=== PATIENT | male | born 1970 | race Caucasian/White ===

== ENCOUNTER 2016-11-16 17:52 | Emergency (ER) | payer OTHER ==
[2016-11-16 18:42] LABS: Hematocrit 43 % (42-52); Hemoglobin 14.8 g/dl (14.0-18.0); Mean Corpuscular HGB Conc 34 g/dl (31-36); Mean Corpuscular Hemoglobin 31 pg (27-31); Mean Corpuscular Volume 90 fL (80-94); Mean Platelet Volume 7 um3 (7.4-10.4); Red Blood Count 4.83 10^6/ul (4.0-5.4); Red Cell Distribution Width 13 % (10.5-15); White Blood Count 11.8 10^3/ul (3.5-10.8)
[2016-11-16 18:58] LABS: ALT 12 U/L (7-52); AST 15 U/L (13-39); Albumin 4.7 g/dL (3.2-5.2); Alkaline Phosphatase 74 U/L (34-104); Anion Gap 7 mmol/L (2-11); BUN/Creatinine Ratio 12.9 (8-20); Blood Urea Nitrogen 11 mg/dL (6-24); CO2 Carbon Dioxide 24 mmol/L (22-32); Calcium 9.7 mg/dL (8.6-10.3); Chloride 104 mmol/L (101-111); EGFR African American 125.4 (>60); EGFR Non-African American 97.5 (>60); Globulin 2.8 g/dL (2-4); Glucose 136 mg/dL (70-100); Potassium 3.8 mmol/L (3.5-5.0); Sodium 135 mmol/L (133-145); Total Protein 7.5 g/dL (6.4-8.9)
[2016-11-16 19:15] LABS: Urine Bacteria Absent (Absent); Urine Bilirubin Negative (Negative); Urine Glucose Negative (Negative); Urine Nitrite Negative (Negative)
[2016-11-16 19:23] LABS: Acetaminophen < 15 mcg/mL; Alcohol < 10 mg/dL (<10); Salicylate < 2.50 mg/dL (<30)
[2016-11-16 19:27] LABS: Benzodiazepine Urine Screen None Detected (None Detect)
[2016-11-16 19:33] LABS: TSH (Thyroid Stimulating Horm) 0.74 mcIU/mL (0.34-5.60)
[2016-11-16 19:50] LABS: Creatine Kinase 107 U/L (10-223)
[2016-11-16 19:52] LABS: Troponin I 0.01 ng/mL (<0.04)
[2016-11-16] MEDS ORDERED: Morphine INJ* 4 MG/ML 1 ML SYRINGE IV ONE (20:01)
[2016-11-16] MEDS ORDERED: Acetaminophen TAB* 325 MG PO ONE (22:18)
[2016-11-16] MEDS ORDERED: LORazepam TAB(*) 1 MG PO ONE (23:02)
--- NOTE | 2016-11-16 23:10 | ED ---
Zurdo Almanzar Erika, scribed for Lesliuisi,Isa Barnett MD on 11/16/16 at 1959 . Psychiatric Complaint - HPI Summary HPI Summary: Patient is a 46-year-old male BIB police to the ED as a 941. Patient reports that he has been under a lot of stress recently. He states people close to him have overdosed on heroin, and he recently fought with his girlfriend and was served with a restraining order today so could not live in his house anymore. Patient states he has SI, but states he always has SI. He denies any attempts. Patient reports he always snorts his gabapentin, which he takes for anxiety. He reports the medication has a greater effect that way. He denies Hx cocaine use. Patient does also report mild chest pain, improved from earlier today. Patient denies HI. Hx ADHD - takes methylphenidate. Hx depression, anxiety. Hx HTN - takes amlodipine and hydrochlorothiazide. He denies Hx DM, liver disease, kidney disease, and CAD. He smokes cigars. - History Of Current Complaint Chief Complaint: EDChestPainROMI Time Seen by Provider: 11/16/16 18:28 Accompanied By: Alone Hx Obtained From: Patient Onset/Duration: Gradual Onset, Lasting Weeks, Still Present Timing: Constant Severity Currently: Moderate Character: Depressed Aggravating Factor(s): Recent Stress Alleviating Factor(s): Nothing Related History: Positive For: Prior Psychiatric Issues Has Suicidal: Reports: Thoughts. Denies: Demonstrates Gesture, Has Prior Attempt(s) - Allergies/Home Medications Allergies/Adverse Reactions: Allergies Allergy/AdvReac Type Severity Reaction Status Date / Time No Known Allergies Allergy Verified 04/01/16 09:46 PMH/Surg Hx/FS Hx/Imm Hx Endocrine/Hematology History: Denies: Hx Diabetes Cardiovascular History: Reports: Hx Angina, Hx Hypertension, Other Cardiovascular Problems/Disorders - Leaky heart valve. Denies: Hx Congestive Heart Failure History: Denies: Hx Renal Disease Sensory History: Reports: Hx Contacts or Glasses Opthamlomology History: Reports: Hx Contacts or Glasses Psychiatric History: Reports: Hx Anxiety, Hx Attention Deficit Hyperactivity Disorder, Hx Depression Denies: Hx Eating Disorder, Hx of Violent Episodes Against Others - Immunization History Date of Tetanus Vaccine: unk Infectious Disease History: No Infectious Disease History: Denies: Traveled Outside the [place] in Last 30 Days - Family History Known Family History: Positive: Cardiac Disease - Social History Alcohol Use: Occasionally Alcohol Amount: possible occasional binging Substance Use Type: Reports: Prescribed - snorts gabapentin Hx Tobacco Use: Yes Smoking Status (MU): Current Some Day Smoker Type: Cigars Review of Systems Positive: Chest Pain Positive: Depressed - with SI All Other Systems Reviewed And Are Negative: Yes Physical Exam Triage Information Reviewed: Yes Vital Signs On Initial Exam: Initial Vitals Temp Pulse Resp BP Pulse Ox 99.1 F 120 20 174/125 98 11/16/16 17:56 11/16/16 17:56 11/16/16 17:56 11/16/16 17:56 11/16/16 17:56 Vital Signs Reviewed: Yes Appearance: Positive: Well-Appearing, No Pain Distress, Well-Nourished Skin: Positive: Warm, Skin Color Reflects Adequate Perfusion, Dry Head/Face: Positive: Normal Head/Face Inspection Eyes: Positive: EOMI, JOANNE, Conjunctiva Clear ENT: Positive: Hearing grossly normal Neck: Positive: Supple, Nontender Respiratory/Lung Sounds: Positive: Clear to Auscultation, Breath Sounds Present Cardiovascular: Positive: Pulses are Symmetrical in both Upper and Lower Extremities, Tachycardia - at 120 bpm on triage. Negative: Murmur, Rub Abdomen Description: Positive: Nontender, No Organomegaly, Soft. Negative: Distended, Guarding, Peritoneal Signs Bowel Sounds: Positive: Present Musculoskeletal: Positive: Strength/ROM Intact Neurological: Positive: Sensory/Motor Intact, Alert, Oriented to Person Place, Time, Normal Gait. Negative: Cerebellar Dysfunction Psychiatric: Positive: Affect/Mood Appropriate - Tynan Coma Scale Coma Scale Total: 15 Diagnostics - Vital Signs Vital Signs Temp Pulse Resp BP Pulse Ox 11/16/16 18:48 93 14 98 11/16/16 18:47 88 16 169/109 98 11/16/16 18:10 16 11/16/16 18:05 99.8 F 113 16 194/125 97 11/16/16 17:56 99.1 F 120 20 174/125 98 - Laboratory Lab Results: Lab Results 11/16/16 11/16/16 Range/Units 18:29 18:29 WBC 11.8 H (3.5-10.8) 10^3/ul RBC 4.83 (4.0-5.4) 10^6/ul Hgb 14.8 (14.0-18.0) g/dl Hct 43 (42-52) % MCV 90 (80-94) fL MCH 31 (27-31) pg MCHC 34 (31-36) g/dl RDW 13 (10.5-15) % Plt Count 292 (150-450) 10^3/ul MPV 7 L (7.4-10.4) um3 Neut % (Auto) 74.8 (38-83) % Lymph % (Auto) 17.0 L (25-47) % [place] % (Auto) 6.5 (1-9) % Eos % (Auto) 0.5 (0-6) % Baso % (Auto) 1.2 (0-2) % Absolute Neuts (auto) 8.8 H (1.5-7.7) 10^3/ul Absolute Lymphs (auto) 2.0 (1.0-4.8) 10^3/ul Absolute Monos (auto) 0.8 (0-0.8) 10^3/ul Absolute Eos (auto) 0.1 (0-0.6) 10^3/ul Absolute Basos (auto) 0.1 (0-0.2) 10^3/ul Absolute Nucleated RBC 0 10^3/ul Nucleated RBC % 0 Sodium 135 (133-145) mmol/L Potassium 3.8 (3.5-5.0) mmol/L Chloride 104 (101-111) mmol/L Carbon Dioxide 24 (22-32) mmol/L Anion Gap 7 (2-11) mmol/L BUN 11 (6-24) mg/dL Creatinine 0.85 (0.67-1.17) mg/dL Est GFR ( Amer) 125.4 (>60) Est GFR (Non-Af Amer) 97.5 (>60) BUN/Creatinine Ratio 12.9 (8-20) Glucose 136 H (70-100) mg/dL Calcium 9.7 (8.6-10.3) mg/dL Total Bilirubin 0.50 (0.2-1.0) mg/dL AST 15 (13-39) U/L ALT 12 (7-52) U/L Alkaline Phosphatase 74 (34-104) U/L Total Protein 7.5 (6.4-8.9) g/dL Albumin 4.7 (3.2-5.2) g/dL Globulin 2.8 (2-4) g/dL Albumin/Globulin Ratio 1.7 (1-3) TSH Pending Salicylates Pending Acetaminophen Pending Serum Alcohol Pending Result Diagrams: 11/16/16 18:29 11/16/16 18:29 Lab Statement: Any lab studies that have been ordered have been reviewed, and results considered in the medical decision making process. - EKG 18:05 Cardiac Rate: Tachycardia - at 106 bpm EKG Rhythm: Sinus Tachycardia EKG Interpretation: No acute ischemic changes Re-Evaluation - Re-Evaluation First Eval Re-Evaluation Time: 22:27 Comment: Described importance of CXR. Patient refuses the CXR. Course/Dx - Course Course Of Treatment: Patient is medically cleared for [facility]HU evaluation at 19:58. - Differential Dx/Clinical Impression Provider Diagnosis: Misuse of drugs, Suicidal ideation Discharge - Discharge Plan Condition: Stable Disposition: OTHER Discharge Disposition Comment: Signed out pending MHU disposition The documentation as recorded by the Zurdo steen Erika accurately reflects the service I personally performed and the decisions made by Josué mccallum Afoma Frances, MD.
[2016-11-16 23:26] VITALS: BP 146/93
== END 2016-11-17 07:39 ==
LOC: ED 17:52
DX: R45.851 Suicidal ideations (principal); F17.290 Nicotine dependence, other tobacco product, uncomplicated; F41.9 Anxiety disorder, unspecified; F19.10 Other psychoactive substance abuse, uncomplicated; I10 Essential (primary) hypertension; F32.9 Major depressive disorder, single episode, unspecified; F90.9 Attention-deficit hyperactivity disorder, unspecified type
CPT/HCPCS: 36415; 80053; 80307; 80320; 80329; 81003; 81015; 82550; 82553; 84443; 84484; 85025; 93005; 96374; 99283; A9270-GY; G0480